=== PATIENT | male | born 1985 | race Caucasian/White ===

== ENCOUNTER 2018-09-25 20:03 | Emergency (ER) | payer OTHER ==
[~2018-09-25] VITALS: Ht 182.9 cm; Wt 93.0 kg
[2018-09-25 20:40] VITALS: BP 122/74
[2018-09-25] MEDS ORDERED: cefTRIAXone SOD 1,000 MG VL IM ONE (23:30)
[2018-09-25] MEDS ORDERED: methylPREDNISolone SOD SUCC 125 MG/2 ML VL IM ONE (23:30)
[2018-09-25] MEDS ORDERED: KETOROLAC TROMETH 60MG/2ML VIAL IM ONE (23:30)
[2018-09-28 08:41] LABS: Hepatitis B Surface Antibody Positive
[2018-09-28 11:42] LABS: Hepatitis B Surface Antigen Negative (Negative)
== END 2018-09-26 01:16 | disposition home or self-care (01) ==
LOC: ER 20:13
DX: S83.92XA Sprain of unspecified site of left knee, initial encounter (principal); S61.451A Open bite of right hand, initial encounter; M51.27 Other intervertebral disc displacement, lumbosacral region; Y04.1XXA Assault by human bite, initial encounter; Y93.89 Activity, other specified; Y99.8 Other external cause status; Y92.89 Other specified places as the place of occurrence of the external cause
CPT/HCPCS: 36415; 72100; 73562; 73590; 86703; 86706; 86803; 87340; 96372; 99284; J0696; J1885; J2930